=== PATIENT | female | born 1970 | race Caucasian/White ===

== ENCOUNTER 2017-05-26 13:41 | Inpatient (IN) | payer MEDICAID ==
[~2017-05-26] VITALS: Ht 160 cm; Wt 76.7 kg
[2017-05-26 15:35] LABS: BASOPHIL % 0.5 % (0-2); PLATELET COUNT 337 x10^3mcL (130-400); RED CELL DISTRIBUTION WIDTH 13.1 % (11.5-14.5)
[2017-05-26 15:44] LABS: CALCIUM 8.7 mg/dL (8.5-10.1); CARBON DIOXIDE 30.9 mmol/L (21-32); CHLORIDE SERUM 105 mmol/L (98-107); CREATININE SERUM 0.7 mg/dL (0.6-1.0); GFR1 > 60 mL/min; GLUCOSE SERUM 93 mg/dL (74-106); POTASSIUM SERUM 3.6 mmol/L (3.5-5.1); SODIUM SERUM 140 mmol/L (136-145)
[2017-05-26 15:50] LABS: ALBUMIN 3.7 g/dL (3.4-5.0); ALKALINE PHOSPHATASE 78 U/L (46-116); ALT/SGPT 19 U/L (14-59); AST/SGOT 11 U/L (15-37); BILIRUBIN TOTAL 0.3 mg/dL (0.20-1.00); TOTAL PROTEIN, SERUM 7.8 g/dL (6.4-8.2)
[2017-05-26] MEDS ORDERED: LISINOPRIL10 MG PO (16:45)
[2017-05-26] MEDS ORDERED: HYDROCHLOROTH12.5 M3 PO (16:46)
[2017-05-26] MEDS ORDERED: SIMVASTATIN10 M1 PO (16:46)
[2017-05-26] MEDS ORDERED: AMBIEN10 MG PO (16:47)
[2017-05-26 17:36] VITALS: BP 142/78
[2017-05-26 19:19] LABS: FREE T4 0.91 ng/dL (0.76-1.46); FREE THYROXINE INDEX 2.1 ug/dL (1.4-4.5); T4(THYROXINE) 6.7 ug/dL (4.7-13.3)
[2017-05-26 19:21] LABS: CHOLESTEROL/HDL RATIO 3.6; MAGNESIUM 2.2 mg/dL (1.8-2.4); PHOSPHOROUS 4.2 mg/dL (2.5-4.9)
[2017-05-26 19:22] LABS: T3 TOTAL 1.03 ng/mL
[2017-05-26 20:42] LABS: microscopic required? YES; urine erythrocyte 2+ (NEGATIVE)
[2017-05-26 21:09] VITALS: BP 112/76
[2017-05-26 21:13] LABS: AMPHETAMINE QUAL UR NONE DETECTED (NEG <=1000)
[2017-05-27 04:45] VITALS: BP 111/69
[2017-05-27 06:35] LABS: CALCIUM 8.3 mg/dL (8.5-10.1); CARBON DIOXIDE 28.7 mmol/L (21-32); CHLORIDE SERUM 108 mmol/L (98-107); CREATININE SERUM 0.7 mg/dL (0.6-1.0); GFR1 > 60 mL/min; GLUCOSE SERUM 89 mg/dL (74-106); MAGNESIUM 1.9 mg/dL (1.8-2.4); POTASSIUM SERUM 3.8 mmol/L (3.5-5.1); SODIUM SERUM 142 mmol/L (136-145)
[2017-05-27 06:45] LABS: BASOPHIL % 0.5 % (0-2); PLATELET COUNT 285 x10^3mcL (130-400); RED CELL DISTRIBUTION WIDTH 13.6 % (11.5-14.5)
[2017-05-27 09:00] VITALS: BP 120/71
[2017-05-27 13:15] VITALS: BP 142/75
[2017-05-27 16:00] VITALS: BP 136/72
[2017-05-27] MEDS ORDERED: BAY PO (16:35)
[2017-05-27] MEDS ORDERED: MOT800 PO (16:37)
[2017-05-27 17:02] VITALS: BP 142/75
== END 2017-05-27 17:55 | disposition home or self-care (01) | DRG 243 ==
LOC: ED 13:41 → DU 16:58
PROVIDERS: ADMIT Family Medicine
DX: K21.9 Gastro-esophageal reflux disease without esophagitis (principal); K22.2 Esophageal obstruction; I10 Essential (primary) hypertension; M94.0 Chondrocostal junction syndrome [Tietze]; M50.30 Other cervical disc degeneration, unspecified cervical region; F41.9 Anxiety disorder, unspecified; E78.5 Hyperlipidemia, unspecified; G47.00 Insomnia, unspecified; Z68.29 Body mass index [BMI] 29.0-29.9, adult; Z80.0 Family history of malignant neoplasm of digestive organs
CPT/HCPCS: 83880; 84439; G0480; J7030